=== PATIENT | female | born 1975 | race Caucasian/White ===

== ENCOUNTER → 2017-01-31 | Outpatient (CLI) | payer OTHER ==
--- NOTE | 2017-01-31 15:44 | REPMRS ---
Patient History The patient states she had a clinical breast exam in 01/2017. Family history of prostate cancer in father at age 77, ovarian cancer in mother at age 58, and breast cancer in paternal aunt at age 50 or over. Taking hormonal contraceptives for 23 years. Digital Woman Screen Mammo: January 31, 2017 - Exam #: [id number] Bilateral CC and MLO view(s) were taken. Technologist: Kavitha Meier, Technologist Prior study comparison: January 28, 2016, digital woman screen mammo performed at [facility]. February 02, 2015, digital woman screen mammo performed at [facility]. FINDINGS: The breast tissue is heterogeneously dense. This may lower the sensitivity of mammography. There has been no change in the appearance of the mammogram from the prior studies. There is a moderate amount of residual fibroglandular tissue which is fairly symmetric. There is no interval development of dominant mass, areas of architectural distortion, or clustered microcalcification typical of malignancy. ASSESSMENT: BI-RADS/ACR category 1 mammogram. Negative. Recommendation Routine screening mammogram in 1 year (for women over age 40). This mammogram was interpreted with the aid of an FDA-approved computer-aided dectection system. Electronically Signed By: Edmundo Fuentes MD 01/31/17 [id number]
== END ==
LOC: M WHC 14:22
PROVIDERS: ATTEND Nurse Practitioner Women's Health
DX: Z12.31 Encounter for screening mammogram for malignant neoplasm of breast (principal)

== ENCOUNTER → 2017-01-31 | Outpatient (REF) | payer OTHER | LOC: M SFHCWAGY 14:38 | PROVIDERS: ATTEND Nurse Practitioner Women's Health | DX: Z12.4 Encounter for screening for malignant neoplasm of cervix (principal); Z12.39 Encounter for other screening for malignant neoplasm of breast ==

== ENCOUNTER → 2018-03-14 | Outpatient (REF) | payer OTHER ==
[2018-03-17 00:58] LABS: HPV HYBRID CAPTURE II Positive (Negative)
== END ==
LOC: M SFHCWAGY 09:51
DX: Z12.4 Encounter for screening for malignant neoplasm of cervix (principal)
CPT/HCPCS: G0123

== ENCOUNTER → 2018-03-14 | Outpatient (CLI) | payer OTHER | LOC: M WHC 09:54 | DX: Z12.31 Encounter for screening mammogram for malignant neoplasm of breast (principal); Z80.3 Family history of malignant neoplasm of breast; Z80.42 Family history of malignant neoplasm of prostate; N60.31 Fibrosclerosis of right breast; N60.32 Fibrosclerosis of left breast | CPT/HCPCS: 77067 ==

== ENCOUNTER → 2019-03-21 | Outpatient (CLI) | payer OTHER ==
--- NOTE | 2019-03-21 16:42 | REPMRS ---
Patient History The patient states she had a clinical breast exam in 03/2019. Family history of breast cancer at age 50 or over in paternal aunt, ovarian cancer at age 58 in mother, prostate cancer at age 77 in father, breast cancer at age 50 or over in paternal cousin. Taking hormonal contraceptives for 25 years. 3D TOMOSYNTHESIS WAS PERFORMED. [facility] lifetime risk for breast cancer is 15.6%. Digital Woman Screen Mammo: March 21, 2019 - Exam #: [id number] Bilateral CC and MLO view(s) were taken. Technologist: Debbie Araiza, Technologist Prior study comparison: March 14, 2018, bilateral digital woman screen mammo performed at [facility]. January 31, 2017, digital woman screen mammo performed at [facility]. FINDINGS: The breast tissue is heterogeneously dense. This may lower the sensitivity of mammography. There has been no change in the appearance of the mammogram from the prior studies. There is a moderate amount of residual fibroglandular tissue which is fairly symmetric. There is no interval development of dominant mass, areas of architectural distortion, or clustered microcalcification typical of malignancy. Assessment: BI-RADS/ACR category 1 mammogram. Negative Mammogram. Recommendation Routine screening mammogram in 1 year (for women over age 40). This mammogram was interpreted with the aid of an FDA-approved computer-aided dectection system. Electronically Signed By: Edmundo Fuentes MD 03/21/19 [id number]
== END ==
LOC: M WHC 15:20
PROVIDERS: ATTEND Nurse Practitioner Women's Health
DX: Z12.31 Encounter for screening mammogram for malignant neoplasm of breast (principal)

== ENCOUNTER → 2019-03-21 | Outpatient (REF) | payer OTHER | LOC: M PLALAB 15:41 | PROVIDERS: ATTEND Nurse Practitioner Women's Health | DX: Z12.4 Encounter for screening for malignant neoplasm of cervix (principal); Z87.42 Personal history of other diseases of the female genital tract; R87.610 Atypical squamous cells of undetermined significance on cytologic smear of cervix (ASC-US) ==

== ENCOUNTER 2019-04-04 08:57 | Emergency (ER) | payer OTHER ==
[~2019-04-04] VITALS: Ht 162.6 cm; Wt 80.8 kg
[2019-04-04] MEDS ORDERED: KARI28TA (09:08)
[2019-04-04] MEDS ORDERED: IBUPROFEN 600 MG TAB PO ONE (09:45)
--- NOTE | 2019-04-04 10:51 | REP ---
Right wrist: Two views. History: Pain after fall. Findings: AP and lateral views right wrist demonstrate normal bones, joints, and soft tissues. No fracture or subluxation is seen. Impression: Unremarkable right wrist views, AP and lateral only. Electronically Signed by Eran Mosquera MD 04/04/2019 10:43 A
--- NOTE | 2019-04-04 10:51 | REP ---
Three views nasal bones: 04/04/2019. Indication: Nasal trauma. Comparison: 05/04/2006. Findings: There is a nondisplaced anterior nasal bone fracture. The paranasal sinuses are essentially clear. No additional acute osseous pathology is present. Impression: Nondisplaced anterior nasal bone fractures. Electronically Signed by Gregorio Andersen DO 04/04/2019 10:42 A
--- NOTE | 2019-04-04 10:52 | REP ---
Right forearm: Two views. History: Pain after a fall. Findings: AP and lateral views of the right forearm demonstrate normal bones, joints and soft tissues. No fracture or subluxation is seen. Impression: Negative radiographs of the right forearm. Electronically Signed by Eran Mosquera MD 04/04/2019 10:43 A
--- NOTE | 2019-04-04 10:53 | REP ---
Right elbow series: Four views. History: Pain after a fall. Findings: Four views right elbow demonstrate positive anterior posterior fat pad signs. There is a tiny chip fracture of the coronoid process of the proximal ulna. Slight impaction of the proximal radial head is suspected as well. No other fractures seen. Impression: Slightly impacted fracture proximal radial head and chip fracture of the coronoid process with hemarthrosis. Electronically Signed by Eran Mosquera MD 04/04/2019 10:44 A
--- NOTE | 2019-04-04 11:09 | REP ---
Right knee series: Five views. History: Pain after a fall. No comparison right knee radiographs. Findings: There is a fairly large, 2.3 cm, subcortical cyst in the tibial plateau, just beneath the tibial spines. This has a benign appearance. There is mild articular spurring of the superior and inferior pole of the patella and the lateral pole of the patella. There is no evidence of fracture. On lateral radiograph, there is a ossific density projecting at the anterior joint line which may be a loose body. This is 7 mm in diameter. Impression: Patellofemoral osteoarthritis. Subcortical cyst in the proximal tibia 2 cm in diameter. 7 mm possible anterior loose body. No fracture or joint effusion seen. Electronically Signed by Eran Mosquera MD 04/04/2019 02:23 P
[2019-04-04 11:30] VITALS: BP 126/71
== END 2019-04-04 11:50 | disposition home or self-care (01) ==
LOC: M ED 08:57
DX: S52.121A Displaced fracture of head of right radius, initial encounter for closed fracture (principal); S02.2XXA Fracture of nasal bones, initial encounter for closed fracture; S80.01XA Contusion of right knee, initial encounter; W01.0XXA Fall on same level from slipping, tripping and stumbling without subsequent striking against object, initial encounter; Y99.0 Civilian activity done for income or pay; M17.11 Unilateral primary osteoarthritis, right knee; M85.461 Solitary bone cyst, right tibia and fibula; F17.210 Nicotine dependence, cigarettes, uncomplicated

== ENCOUNTER → 2019-04-18 | Outpatient (CLI) | payer OTHER ==
[~2019-04-18] MED LIST: KARI28TA
--- NOTE | 2019-04-18 12:50 | REP ---
Clinical: Work injury. Technique: Axial noncontrast images of the elbow with coronal and sagittal re-formations. Findings: There is a subtle nondisplaced fracture involving the radial head with small amount of adjacent hemarthrosis. Remainder examination appears normal. Impression: Subtle nondisplaced fracture of the radial head with small hemarthrosis. Electronically Signed by Nathan Sibley MD 04/18/2019 12:41 P
== END ==
LOC: M RAD 11:53
PROVIDERS: ATTEND Orthopaedic Surgery Sports Medicine
DX: S52.044A Nondisplaced fracture of coronoid process of right ulna, initial encounter for closed fracture (principal); X58.XXXA Exposure to other specified factors, initial encounter

== ENCOUNTER → 2019-04-29 | Outpatient (CLI) | payer OTHER ==
--- NOTE | 2019-04-30 07:32 | REP ---
MRI RIGHT KNEE WITHOUT CONTRAST: HISTORY: Contusion of the right knee. Comparison knee radiographs April 04, 2019. TECHNIQUE: Axial, coronal and sagittal imaging planes are utilized. T1- and T2-weighted and proton density weighted scans were obtained with and without fat saturation in the usual fashion. MRI FINDINGS: There is a small amount of joint fluid. There is no significant Simpson's cyst. MR images confirm the presence of a subcortical cyst beneath the tibial spines in the proximal tibia centrally. This measures 2.0 cm in craniocaudal x 1.6 cm in anteroposterior x 1.5 cm in right to left dimension. There is some subcortical cyst formation and marrow edema in the upper pole of the patella associated with chondromalacia in the overlying articular cartilage. Cortical and medullary bone signal intensity are otherwise normal. There is a osteocartilaginous loose body at the anterior joint line surrounded by joint fluid. This measures 5 mm in greatest diameter on MR images. No lateral meniscal tear is seen. There is a principally horizontal tear in the posterior horn of the medial meniscus. No displaced meniscal material is seen. Anterior posterior cruciate ligaments appear intact. There is no evidence of medial or lateral collateral ligament disruption. Patellar and quadriceps tendons are intact in appearance. No other loose body is appreciated. IMPRESSION: 1. There is a 5 mm osteochondroma cartilaginous loose body at the anterior joint line. 2. A 2 cm subcortical cyst seen beneath the tibial spines in the proximal tibia. 3. There is some lateral tibial plateau chondromalacia and patellar chondromalacia is seen. 4. A horizontal nondisplaced tear is seen in the posterior horn and posterior body of the medial meniscus. 5. Small joint effusion. Electronically Signed by Eran Mosquera MD 04/30/2019 07:53 A
== END ==
LOC: M RAD 16:06
PROVIDERS: ATTEND Orthopaedic Surgery Sports Medicine
DX: S80.01XA Contusion of right knee, initial encounter (principal); X58.XXXA Exposure to other specified factors, initial encounter; Y92.89 Other specified places as the place of occurrence of the external cause

== ENCOUNTER → 2019-05-06 | Outpatient (REF) | payer OTHER | LOC: M SFHCWAGY 18:16 | PROVIDERS: ATTEND Nurse Practitioner Women's Health | DX: R87.610 Atypical squamous cells of undetermined significance on cytologic smear of cervix (ASC-US) (principal); R87.810 Cervical high risk human papillomavirus (HPV) DNA test positive ==

== ENCOUNTER → 2020-02-19 | Outpatient (REF) | payer OTHER | LOC: M SFHCWAGY 09:51 | PROVIDERS: ATTEND Specialist | DX: R87.613 High grade squamous intraepithelial lesion on cytologic smear of cervix (HGSIL) (principal); N88.8 Other specified noninflammatory disorders of cervix uteri ==

== ENCOUNTER → 2020-09-01 | Outpatient (REF) | payer OTHER | LOC: M SFHCWAGY 09:59 | PROVIDERS: ATTEND Nurse Practitioner Women's Health | DX: Z12.4 Encounter for screening for malignant neoplasm of cervix (principal); R87.610 Atypical squamous cells of undetermined significance on cytologic smear of cervix (ASC-US) ==

== ENCOUNTER → 2022-01-21 | Outpatient (CLI) | payer OTHER, SELFPAY | LOC: M WHC 14:05 | PROVIDERS: ATTEND Nurse Practitioner Family | DX: Z12.31 Encounter for screening mammogram for malignant neoplasm of breast (principal) ==

== ENCOUNTER → 2022-01-21 | Outpatient (REF) | payer SELFPAY | LOC: M SFHCWAGY 10:02 | PROVIDERS: ATTEND Nurse Practitioner Family | DX: Z12.4 Encounter for screening for malignant neoplasm of cervix (principal); Z77.9 Other contact with and (suspected) exposures hazardous to health | CPT/HCPCS: 87624; G0123 ==

== ENCOUNTER → 2023-02-23 | Outpatient (CLI) | payer SELFPAY | LOC: M WHC 07:59 | PROVIDERS: ATTEND Nurse Practitioner Family | DX: Z12.31 Encounter for screening mammogram for malignant neoplasm of breast (principal) ==

== ENCOUNTER → 2024-03-07 | Outpatient (REF) | payer SELFPAY ==
[2024-03-11 15:52] LABS: HPV APTIMA Not Detected (Not Detected)
== END ==
LOC: M PLALAB 14:07
PROVIDERS: ATTEND Obstetrics & Gynecology
DX: Z01.419 Encounter for gynecological examination (general) (routine) without abnormal findings (principal)

== ENCOUNTER → 2024-03-07 | Outpatient (CLI) | payer SELFPAY | LOC: M WHC 13:38 | PROVIDERS: ATTEND Obstetrics & Gynecology | DX: Z12.31 Encounter for screening mammogram for malignant neoplasm of breast (principal) ==

== ENCOUNTER → 2025-03-21 | Outpatient (CLI) | payer SELFPAY | LOC: M WHC 12:58 | PROVIDERS: ATTEND Obstetrics & Gynecology | DX: Z12.31 Encounter for screening mammogram for malignant neoplasm of breast (principal); R92.323 Mammographic fibroglandular density, bilateral breasts ==